=== PATIENT | male | born 1940 | race American Indian/Alaskan Native ===

== ENCOUNTER 2016-10-30 10:03 | Outpatient (CLI) | payer MEDICARE ==
[2016-10-30 11:06] LABS: Blood Urea Nitrogen 15 mg/dL (9-20)
[2016-10-30] MEDS ORDERED: NACL ONE (11:19)
--- NOTE | 2016-10-30 12:21 | Cat Scan Report ---
CT ABDOMEN AND PELVIS WITHOUT AND WITH CONTRAST INDICATION: Phlebitis and thrombophlebitis of the vessels. COMPARISON: None similar. FINDINGS: Abdomen and pelvis CT performed before and after intravenous administration of 100 cc of Omnipaque 300. LUNG BASES: Few atherosclerotic calcifications. Nonspecific distal esophageal wall prominence/thickening, not excluded for gastroesophageal reflux and/or hiatal hernia, amongst others. ABDOMEN: Precontrast images demonstrate no radiopaque gallbladder or right renal calculus. A nonobstructing 4 mm left interpolar renal calculus. IVC filter also seen. Postcontrast images demonstrate homogenous liver and spleen. Intrahepatic biliary prominence/dilatation centrally measures up to 1.4 cm, axial series 3, image 67, though tapering to proximal CBD caliber of approximately 0.8 cm at the bill hepatis. Gallbladder, pancreas, adrenals and nonaneurysmal abdominal aorta with atherosclerotic calcifications within normal limits. Slight nonspecific bilateral perinephric stranding. Bilateral renal cortical hypodensities inferiorly, the largest 1.7 cm cyst at the right lower renal pole, delayed axial image 37. No definite filling defect below the IVC filter noted. Nonopacified GI tract evaluation limited, though grossly nonobstructive. Normal appendix. Mild to moderate colonic stool/possible constipation. Descending colon diverticulosis. PELVIS: Numerous pelvic surgical clips from possible radical prostatectomy creates streak artifact, limiting exam. Urinary bladder and the rectosigmoid within normal limits. No free fluid or significant adenopathy. Healed ventral infraumbilical incision. Approximately 2 mm lower lumbar spondylolisthesis with disc degeneration and vacuum phenomenon. Extensive lower lumbar facet arthropathy and bilateral SI joint degenerative bridging noted. Additional multilevel spinal degenerative changes, including extensive right-sided lower thoracic osteophytes as also upper lumbar disc degeneration/vacuum phenomenon. CONCLUSION: No acute CT abnormality with various incidental findings, including nonobstructing left nephrolithiasis, IVC filter, renal cysts, diverticulosis, various bony degenerative changes and possible prostatectomy, amongst others, as above. Please correlate. Thank you for the opportunity to participate in this patient's care.
== END 2016-10-30 10:04 | disposition home or self-care (01) ==
LOC: CT 10:03
PROVIDERS: ATTEND Radiology Diagnostic Radiology
DX: I80.291 Phlebitis and thrombophlebitis of other deep vessels of right lower extremity (principal); N20.0 Calculus of kidney; N28.1 Cyst of kidney, acquired; K57.30 Diverticulosis of large intestine without perforation or abscess without bleeding; M43.16 Spondylolisthesis, lumbar region; I70.0 Atherosclerosis of aorta; M12.88 Other specific arthropathies, not elsewhere classified, other specified site; M25.78 Osteophyte, vertebrae; M51.36 Other intervertebral disc degeneration, lumbar region
CPT/HCPCS: 36415; 74178; 82565; 84520; Q9967

== ENCOUNTER 2017-11-08 10:41 | Outpatient (CLI) | payer MEDICARE ==
--- NOTE | 2017-11-08 12:32 | XRay Report ---
ABDOMEN ONE VIEW INDICATION: Phlebitis, thrombophlebitis. COMPARISON: 10/30/2016 CT. FINDINGS: Frontal abdominal radiographs, 2 images again demonstrate nonobstructive bowel gas pattern, IVC filter and multiple pelvic surgical clips. No pneumatosis or pneumoperitoneum. Right hemidiaphragm approximately 5 cm higher than the left. Possible cardiomegaly. Advanced multilevel spinal degenerative changes. Iliac enthesophytosis. Atherosclerotic aortoiliac calcifications. CONCLUSION: No acute abdominal radiographic abnormality with various other findings, as described. Thank you for the opportunity to participate in this patient's care.
== END 2017-11-08 10:42 | disposition home or self-care (01) ==
LOC: XRAY 10:41
PROVIDERS: ATTEND Radiology Diagnostic Radiology
DX: I80.291 Phlebitis and thrombophlebitis of other deep vessels of right lower extremity (principal); I10 Essential (primary) hypertension; E78.00 Pure hypercholesterolemia, unspecified
CPT/HCPCS: 74018

== ENCOUNTER 2018-11-17 09:23 | Outpatient (CLI) | payer MEDICARE ==
--- NOTE | 2018-11-17 11:14 | XRay Report ---
ABDOMEN 1 VIEW(S) INDICATION / CLINICAL INFORMATION: Phlebitis and thrombophlebitis, venous insufficiency. COMPARISON: 11/08/2017 FINDINGS: TUBES / LINES: IVC filter is unchanged at the L2 level. BOWEL GAS PATTERN: No significant abnormality. FREE AIR / EXTRALUMINAL GAS: None seen. ADDITIONAL FINDINGS: Multiple surgical clips are noted on both sides of the pelvis, correlate with crespo rgical history. IMPRESSION: No significant abnormality. No change since 11/08/2017. Signer Name: El Guardado Jr, MD Signed: 11/17/2018 11:09 AM Workstation Name: [id number]
== END 2018-11-17 09:24 | disposition home or self-care (01) ==
LOC: XRAY 09:23
PROVIDERS: ATTEND Radiology Diagnostic Radiology
DX: I80.291 Phlebitis and thrombophlebitis of other deep vessels of right lower extremity (principal); I87.2 Venous insufficiency (chronic) (peripheral); I87.323 Chronic venous hypertension (idiopathic) with inflammation of bilateral lower extremity; E78.00 Pure hypercholesterolemia, unspecified; E11.9 Type 2 diabetes mellitus without complications
CPT/HCPCS: 74018

== ENCOUNTER 2020-09-30 09:08 | Outpatient (CLI) | payer MEDICARE ==
--- NOTE | 2020-09-30 10:08 | XRay Report ---
RIGHT HAND 3 VIEWS INDICATION: Right hand pain. COMPARISON: None. IMPRESSION: No acute osseous or soft tissue abnormality. No significant DJD. RIGHT WRIST 4 VIEWS INDICATION: RIGHT WRIST PAIN. COMPARISON: None. IMPRESSION: There appears to be mild widening of the scapholunate interval which could represent sca pholunate ligament injury. Minimal osteoarthritic changes are identified. No evidence for fracture, dislocation or bone lesion. Mild diffuse soft tissue swelling is noted. Signer Name: El Guardado Jr, MD Signed: 09/30/2020 10:04 AM Workstation Name: [id number]
== END 2020-09-30 09:09 | disposition home or self-care (01) ==
LOC: XRAY 09:08
PROVIDERS: ATTEND Internal Medicine
DX: M19.031 Primary osteoarthritis, right wrist (principal); M79.641 Pain in right hand